=== PATIENT | female | born 1995 | race Caucasian/White ===

== ENCOUNTER 2017-03-25 19:42 | Emergency (ER) | payer MEDICAID, OTHER ==
[2017-03-25 20:02] VITALS: BP 125/67
--- NOTE | 2017-03-25 20:14 | UC ---
Throat Pain/Nasal Khari HPI - HPI Summary HPI Summary: 21 y/o female presents ot the urgent care s/o sore throat w/ difficulty swallowing for the past 3 days. Pt has mild SY . Her pain is 3/10 and mild nasal congestion w/ clear discharge. Pt denies fever, SOB, cough, chest pain, N/ V/D. - History of Current Complaint Chief Complaint: UCRespiratory Stated Complaint: SORE THROAT/LEFT EAR PAIN Time Seen by Provider: 03/25/17 20:07 Hx Obtained From: Patient Hx Last Menstrual Period: 03/09/17 ?: No Onset/Duration: Gradual Onset, Lasting Days, Still Present Severity: Moderate Pain Intensity: 3 Pain Scale Used: 0-10 Numeric Associated Signs & Symptoms: Positive: Dysphagia, Nasal Discharge - clear diacharge. Negative: Fever, Vomiting, Rash - Epiglottits Risk Factors Epiglottis Risk Factors: Negative - Allergies/Home Medications Allergies/Adverse Reactions: Allergies Allergy/AdvReac Type Severity Reaction Status Date / Time No Known Allergies Allergy Verified 03/25/17 20:02 PMH/Surg Hx/FS Hx/Imm Hx Previously Healthy: Yes Other Endocrine History: Eczema - Surgical History Surgical History: Yes Surgery Procedure, Year, and Place: knee 2011,2013 - Social History Alcohol Use: None Substance Use Type: None Smoking Status (MU): Never Smoked Tobacco Review of Systems Constitutional: Negative Skin: Negative Eyes: Negative ENT: Sore Throat, Nasal Discharge - with clear nasal discharge Respiratory: Negative Cardiovascular: Negative Gastrointestinal: Negative Genitourinary: Negative Motor: Negative Neurovascular: Negative Musculoskeletal: Negative Neurological: Headache - mild Psychological: Negative All Other Systems Reviewed And Are Negative: Yes Physical Exam Triage Information Reviewed: Yes Appearance: Well-Appearing, No Pain Distress, Well-Nourished, Obese Vital Signs: Initial Vital Signs Temp 98.3 F 03/25/17 19:58 Pulse 79 03/25/17 19:58 Resp 14 03/25/17 19:58 BP 125/67 03/25/17 19:58 Pulse Ox 100 03/25/17 19:58 Vital Signs Reviewed: Yes Eye Exam: Normal Eyes: Positive: Conjunctiva Clear - PERRLA, EOMI, fundi grossly intact ENT Exam: Normal ENT: Positive: Normal ENT inspection, Hearing grossly normal, Pharyngeal erythema - mild exudate, Nasal congestion - mild edematous nasal mucosa, TMs normal, Tonsillar swelling - B/L, Tonsillar exudate - RT tonsil Dental Exam: Normal Neck exam: Normal Neck: Positive: Supple, Nontender, No Lymphadenopathy Respiratory Exam: Normal Respiratory: Positive: Chest non-tender, Lungs clear, Normal breath sounds Cardiovascular Exam: Normal Cardiovascular: Positive: RRR, No Murmur, Pulses Normal Abdominal Exam: Normal Abdomen Description: Positive: Nontender, No Organomegaly, Soft. Negative: CVA Tenderness (R), CVA Tenderness (L) Bowel Sounds: Positive: Present Musculoskeletal Exam: Normal Neurological Exam: Normal Psychological Exam: Normal Skin Exam: Normal Throat Pain/Nasal Course/Dx - Course Course Of Treatment: PE abnormal findings:ENT: Positive: Normal ENT inspection, Hearing grossly normal, Pharyngeal erythema - mild exudate, Nasal congestion - mild edematous nasal mucosa, TMs normal, Tonsillar swelling - B/L, Tonsillar exudate - RT tonsil. Rapid strep test ordered, result negative. Viral pharyngitis. Pt Rx Ibuprofen PO after meals to alleviate symptoms, Advised to increase fluid intake and rest and avoid strenuous exercise. Pt understood and agreed. - Differential Dx/Diagnosis Differential Diagnosis/HQI/PQRI: Laryngitis, Mononucleosis, Peritonsillar Abscess, Pharyngitis, Tonsillitis Provider Diagnoses: 1- Viral pharyngitis Discharge - Discharge Plan Condition: Stable Disposition: HOME Prescriptions: Ibuprofen TAB* [Motrin TAB* 800 MG] 800 mg PO Q6H #20 tab Patient Education Materials: Pharyngitis (ED) Referrals: Azeem Simms [Primary Care Provider] - If Needed Additional Instructions: Take ibuprofen as instructed after meals to alleviate pain and swelling. If symptoms do not improve or worsen please return to the urgent care or f/u with your PCP for further evaluation and treatment
== END 2017-03-25 20:25 | disposition home or self-care (01) ==
LOC: UCCORT 19:42
DX: J02.8 Acute pharyngitis due to other specified organisms (principal); L30.9 Dermatitis, unspecified
CPT/HCPCS: 87651; 99212; G0463

== ENCOUNTER 2018-05-29 09:21 | Emergency (ER) | payer MEDICAID ==
[2018-05-29 09:48] VITALS: BP 125/67
--- NOTE | 2018-05-29 10:40 | UC ---
Respiratory Complaint HPI - HPI Summary HPI Summary: cough x 7 days + productive cough, green sputum, chest congestion + nasal congestion , pnd, no fever, no chills, + wheezing - History of Current Complaint Chief Complaint: UCRespiratory Stated Complaint: CONGESTION COUGH Time Seen by Provider: 05/29/18 10:25 Hx Obtained From: Patient Hx Last Menstrual Period: 05/10/18 ?: No Onset/Duration: Gradual Onset, Lasting Days - 7, Still Present Timing: Constant Severity Initially: Moderate Severity Currently: Moderate Pain Intensity: 0 Character: Cough: Productive - green sputum Aggravating Factors: Exertion, Deep Breaths Alleviating Factors: Bronchodilator Associated Signs And Symptoms: Positive: Dyspnea, Wheezing, URI, Nasal Congestion, Hoarseness, Sinus Discomfort. Negative: Fever, Chills, Pleuritic Chest Pain, Hemoptysis, Dizziness, Calf Pain, Calf Swelling - Allergies/Home Medications Allergies/Adverse Reactions: Allergies Allergy/AdvReac Type Severity Reaction Status Date / Time No Known Allergies Allergy Verified 05/29/18 09:45 PMH/Surg Hx/FS Hx/Imm Hx Previously Healthy: Yes - Surgical History Surgical History: Yes Surgery Procedure, Year, and Place: knee 2011,2013 - Family History Known Family History: Negative: Diabetes - Social History Alcohol Use: None Substance Use Type: None Smoking Status (MU): Never Smoked Tobacco Review of Systems Constitutional: Negative Skin: Negative Eyes: Negative ENT: Nasal Discharge, Sinus Congestion, Sinus Pain/Tenderness Respiratory: Shortness Of Breath, Cough Cardiovascular: Negative Gastrointestinal: Negative Is Patient Immunocompromised?: No All Other Systems Reviewed And Are Negative: Yes Physical Exam Triage Information Reviewed: Yes Appearance: Well-Appearing, No Pain Distress, Obese Vital Signs: Initial Vital Signs Temp 97.7 F 05/29/18 09:44 Pulse 83 05/29/18 09:44 Resp 18 05/29/18 09:44 BP 125/67 05/29/18 09:44 Pulse Ox 98 05/29/18 09:44 Vital Signs Reviewed: Yes Eye Exam: Normal Eyes: Positive: Conjunctiva Clear ENT: Positive: Normal ENT inspection, Hearing grossly normal, Pharynx normal Neck: Positive: Supple, Nontender, No Lymphadenopathy Respiratory: Positive: Chest non-tender, Lungs clear, Normal breath sounds Cardiovascular: Positive: RRR, No Murmur, Pulses Normal Skin Exam: Normal UC Diagnostic Evaluation - Laboratory O2 Sat by Pulse Oximetry: 98 Respiratory Course/Dx - Differential Dx/Diagnosis Provider Diagnoses: viral bronchitis Discharge - Sign-Out/Discharge Documenting (check all that apply): Patient Departure All imaging exams completed and their final reports reviewed: No Studies - Discharge Plan Condition: Stable Disposition: HOME Prescriptions: Benzonatate CAP* [Tessalon 100 MG CAP*] 100 mg PO TID PRN #15 cap PRN Reason: Cough predniSONE TAB* [Deltasone 20 MG TAB*] 40 mg PO DAILY #10 tab Patient Education Materials: Acute Bronchitis (ED) Referrals: Azeem Simms [Primary Care Provider] - If Needed - Billing Disposition and Condition Condition: STABLE Disposition: Home
== END 2018-05-29 10:44 | disposition home or self-care (01) ==
LOC: UCCORT 09:21
DX: J20.8 Acute bronchitis due to other specified organisms (principal)
CPT/HCPCS: 99212; G0463

== ENCOUNTER 2019-03-02 11:12 | Emergency (ER) | payer MEDICAID, OTHER ==
[2019-03-02 11:38] VITALS: BP 130/82
--- NOTE | 2019-03-02 11:53 | UC ---
UC General HPI - HPI Summary HPI Summary: Vomiting and diarrhea the past 3 days. Pt's girlfriend has had the same symptoms for the past 5 days which is now resolving. - History of Current Complaint Chief Complaint: UCGI Stated Complaint: VOMITTING, DIARRHEA X 3 DAYS Time Seen by Provider: 03/02/19 11:21 Hx Obtained From: Patient Hx Last Menstrual Period: 02/07/19 Onset/Duration: Sudden Onset Timing: Intermittent Episodes Lasting: - V+D about 3-5 times a day. Onset Severity: Mild Current Severity: Mild Pain Intensity: 2 Associated Signs & Symptoms: Positive: Diarrhea, Vomiting - Allergy/Home Medications Allergies/Adverse Reactions: Allergies Allergy/AdvReac Type Severity Reaction Status Date / Time No Known Allergies Allergy Verified 03/02/19 11:27 PMH/Surg Hx/FS Hx/Imm Hx Previously Healthy: Yes - Hx eczema, pancreatitis - Surgical History Surgical History: Yes Surgery Procedure, Year, and Place: knee 2011,2013. GASTROSCOPE FOR MASSES ON HER PANCREAS -2014 - Family History Known Family History: Negative: Diabetes - Social History Alcohol Use: None Substance Use Type: None Smoking Status (MU): Never Smoked Tobacco Review of Systems All Other Systems Reviewed And Are Negative: Yes Gastrointestinal: Positive: Vomiting, Diarrhea, Nausea Is Patient Immunocompromised?: No Physical Exam Triage Information Reviewed: Yes Appearance: Well-Appearing, No Pain Distress, Well-Nourished Vital Signs: Initial Vital Signs Temp 98.3 F 03/02/19 11:28 Pulse 73 03/02/19 11:28 Resp 15 03/02/19 11:28 BP 130/82 03/02/19 11:28 Pulse Ox 99 03/02/19 11:28 Vital Signs Reviewed: Yes Eyes: Positive: Conjunctiva Clear ENT: Positive: Hearing grossly normal, Pharynx normal, TMs normal, Uvula midline Neck: Positive: Supple, Nontender, No Lymphadenopathy Respiratory: Positive: Lungs clear, Normal breath sounds, No respiratory distress, No accessory muscle use Cardiovascular: Positive: RRR, No Murmur, Pulses Normal, Brisk Capillary Refill Abdomen Description: Positive: Nontender, No Organomegaly, Soft. Negative: CVA Tenderness (R), CVA Tenderness (L) Bowel Sounds: Positive: Present Musculoskeletal Exam: Normal Neurological Exam: Normal Psychological Exam: Normal Skin Exam: Normal Course/Dx - Course Course Of Treatment: Pt comfortable here. I believe this is probably a viral illness which her girlfriend also had. - Diagnoses Provider Diagnosis: Viral illness Discharge - Sign-Out/Discharge Documenting (check all that apply): Patient Departure All imaging exams completed and their final reports reviewed: No Studies - Discharge Plan Condition: Fair Disposition: HOME Prescriptions: Loperamide CAP* [Imodium CAP*] 2 mg PO Q4H PRN #1 bottle PRN Reason: Diarrhea Ondansetron TAB* [Zofran 4 MG Tab*] 4 mg PO Q8HR PRN #10 tab PRN Reason: Nausea Patient Education Materials: Loperamide (By mouth), Acute Diarrhea (ED) Forms: *Work Release Referrals: Azeem Simms [Primary Care Provider] - Additional Instructions: Increase fluids, Go to ER if worsening symptoms - Billing Disposition and Condition Condition: FAIR Disposition: Home
== END 2019-03-02 12:03 | disposition home or self-care (01) ==
LOC: UCCORT 11:12
DX: B34.9 Viral infection, unspecified (principal)
CPT/HCPCS: 99212; G0463